=== PATIENT | female | born 2000 | race Caucasian/White ===

== ENCOUNTER 2023-11-10 12:55 | Emergency (ER) | payer MEDICARE ==
[~2023-11-10] VITALS: Ht 157.4 cm; Wt 79.4 kg
[2023-11-10] MEDS ORDERED: diphenhydrAMINE hydrochloride 50 MG/ML VIAL IM ONE (13:25)
[2023-11-10] MEDS ORDERED: methylPREDNISolone sod succ 125 MG VIAL IM ONE (13:25)
[2023-11-10] MEDS ORDERED: PREDNISONE20 M1 PO (14:08)
== END 2023-11-10 14:16 | disposition home or self-care (01) ==
LOC: ED 12:55
DX: T78.49XA Other allergy, initial encounter (principal); X58.XXXA Exposure to other specified factors, initial encounter